=== PATIENT | male | born 1955 | race Two or more races ===

== ENCOUNTER 2021-09-26 13:33 | Inpatient (IN) | payer MEDICARE, OTHER ==
[~2021-09-26] VITALS: Ht 175.3 cm; Wt 63.5 kg
[2021-09-26] MEDS ORDERED: CLINDAMYCIN 900MG IV 50 ML IV ONE (14:00)
[2021-09-26 14:55] LABS: Basophils # (auto) 0 10 ^3/uL (0-0.2); Basophils % (auto) 0.3 % (0.0-2.0); Eosinophils # (auto) 0 10 ^3/uL (0-0.8); Hemoglobin 13.7 g/dL (13.5-17.5); Lymphocytes # (auto) 1.5 10 ^3/uL (0.4-5.4); Lymphocytes % (auto) 12.3 % (10.0-50.0); Mean Corpuscular Hemoglobin 28.3 pg (28.0-32.0); Mean Corpuscular Hgb Conc. 33.4 g/dL (32.0-36.0); Mean Corpuscular Volume 84.8 fL (80.0-100.0); Monocytes # (auto) 1.2 10 ^3/uL (0-1.3); Monocytes % (auto) 9.7 % (0.0-12.0); Neutrophils # (auto) 9.4 10 ^3/uL (1.6-8.6); Neutrophils % (auto) 77.7 % (37.0-80.0); Nucleated Red Blood Cells % 0.1 %; Red Blood Cells 4.84 10^6/uL (4.5-5.90); Red Cell Distribution Width 13.8 % (11.8-14.3); White Blood Cell 12.1 10^3/uL (4.4-10.8)
[2021-09-26 15:16] LABS: Albumin 3.5 g/dL (3.4-5.0); BUN/Creatinine Ratio 13.2; Calcium 9.5 mg/dL (8.5-10.1); Potassium 3.7 mmol/L (3.5-5.1)
[2021-09-26 15:18] LABS: Lactic Acid w/Reflex 2.6 mmol/L (0.4-2.0)
[2021-09-26 15:19] LABS: Bilirubin, Total 0.8 mg/dL (0.2-1.0); Total Protein 7.5 g/dL (6.4-8.2)
[2021-09-26 23:00] VITALS: BP 131/81
[2021-09-26] MEDS ORDERED: MORPHINE SULFATE INJECTION 2 MG/ML SYRG IV PRN (23:45)
[2021-09-26] MEDS ORDERED: ACETAMINOPHEN 325 MG TAB PO PRN (23:45)
[2021-09-26] MEDS ORDERED: DOCUSATE SOD 100 MG CAP PO PRN (23:45)
[2021-09-26] MEDS ORDERED: ONDANSETRON HCL 4 MG/2 ML VIAL IV PRN (23:45)
[2021-09-26] MEDS ORDERED: HYDROcodone-ACET 5/325MG TAB PO PRN (23:45)
[2021-09-26] MEDS ORDERED: MORPHINE SULFATE 4 MG/ML SYR/VIAL IV PRN (23:45)
[2021-09-26] MEDS ORDERED: NITROGLYCERIN 0.4 MG SL TAB SL PRN (23:45)
[2021-09-27] MEDS ORDERED: DEXTROSE (50%) 50ML SYRG IV PRN
[2021-09-27] MEDS ORDERED: METOPROLOL TARTRATE 25 MG TAB PO ONE (03:45)
[2021-09-27] MEDS ORDERED: hydrALAZINE HCL 20 MG/ML VL IV PRN (03:45)
[2021-09-27 05:00] VITALS: BP 131/81
[2021-09-27] MEDS: CLINDAMYCIN 600MG IV 50 ML IV SCH ×3 (05:00→22:07)
[2021-09-27] MEDS: SODIUM CHLOR 0.9% PF (SALINE LOCK) 10ML VIAL/SYR IV SCH ×3 (06:00→22:04)
[2021-09-27] MEDS: ACCU-CHEK COMFORT CURVE STRIP VI SCH ×4 (06:40→22:05)
[2021-09-27] MEDS: InsuLIN REG 1unit/0.01ml Soln (100units/ml) SC SCH ×4 (06:51→22:05)
[2021-09-27 09:00] VITALS: BP 112/71
[2021-09-27 09:01] LABS: Basophils # (auto) 0.1 10 ^3/uL (0-0.2); Basophils % (auto) 0.6 % (0.0-2.0); Eosinophils # (auto) 0 10 ^3/uL (0-0.8); Eosinophils % (auto) 0.1 % (0.0-7.0); Hematocrit 37.9 % (41.0-53.0); Hemoglobin 12.8 g/dL (13.5-17.5); Lymphocytes # (auto) 2.9 10 ^3/uL (0.4-5.4); Lymphocytes % (auto) 24.5 % (10.0-50.0); Mean Corpuscular Hemoglobin 28.1 pg (28.0-32.0); Mean Corpuscular Hgb Conc. 33.7 g/dL (32.0-36.0); Mean Corpuscular Volume 83.3 fL (80.0-100.0); Monocytes # (auto) 1.1 10 ^3/uL (0-1.3); Monocytes % (auto) 9.2 % (0.0-12.0); Neutrophils # (auto) 7.8 10 ^3/uL (1.6-8.6); Neutrophils % (auto) 65.6 % (37.0-80.0); Red Blood Cells 4.55 10^6/uL (4.5-5.90); Red Cell Distribution Width 13.5 % (11.8-14.3); White Blood Cell 11.9 10^3/uL (4.4-10.8)
[2021-09-27 09:17] LABS: Albumin 3.3 g/dL (3.4-5.0); Anion Gap 10 (5-15); Blood Urea Nitrogen 18 mg/dL (7-18); Calcium 9.3 mg/dL (8.5-10.1); Carbon Dioxide 26 mmol/L (21-32); Chloride 102 mmol/L (98-107); Glucose 96 mg/dL (74-106); Potassium 3.6 mmol/L (3.5-5.1); Sodium 138 mmol/L (136-145)
[2021-09-27 09:22] LABS: Alanine Aminotransferase 19 U/L (16-61); Alkaline Phosphatase 76 U/L (45-117); Aspartate Aminotransferase 10 U/L (15-37); BUN/Creatinine Ratio 18.6; Bilirubin, Total 0.6 mg/dL (0.2-1.0); Blood Alcohol < 3.0 mg/dL (0-5); GFR African American 99 mL/min; GFR Non-African American 82 mL/min
[2021-09-27] MEDS: ENOXAPARIN SOD 40 MG/0.4 ML SYRINGE SC SCH (09:43)
[2021-09-27] MEDS: ZINC SULFATE 220mg CAP or TAB PO SCH (09:43)
[2021-09-27] MEDS: MULTIPLE VITAMIN TAB PO SCH (09:44)
[2021-09-27] MEDS: ASCORBIC ACID 500 MG TAB PO SCH ×2 (09:44→22:04)
[2021-09-27] MEDS: METOPROLOL TARTRATE 25 MG TAB PO SCH ×2 (09:51→22:04)
[2021-09-27] MEDS ORDERED: FAMOTIDINE (10MG/ML) 2ML VL IV SCH (10:00)
[2021-09-27 13:19] VITALS: BP 152/75
[2021-09-27 17:00] VITALS: BP 122/68
[2021-09-27] MEDS: metFORMIN HYDROCHLORIDE 500 MG TAB PO SCH (18:03)
[2021-09-27 22:00] VITALS: BP 121/68
[2021-09-28 05:00] VITALS: BP 124/68
[2021-09-28] MEDS: ACCU-CHEK COMFORT CURVE STRIP VI SCH ×4 (06:52→22:28)
[2021-09-28] MEDS: SODIUM CHLOR 0.9% PF (SALINE LOCK) 10ML VIAL/SYR IV SCH ×3 (06:52→22:09)
[2021-09-28] MEDS: InsuLIN REG 1unit/0.01ml Soln (100units/ml) SC SCH ×4 (06:53→22:26)
[2021-09-28] MEDS: CLINDAMYCIN 600MG IV 50 ML IV SCH ×3 (06:55→22:09)
[2021-09-28] MEDS: metFORMIN HYDROCHLORIDE 500 MG TAB PO SCH ×2 (08:00→17:44)
[2021-09-28 09:00] VITALS: BP 100/61
[2021-09-28] MEDS: ZINC SULFATE 220mg CAP or TAB PO SCH (10:10)
[2021-09-28] MEDS: ENOXAPARIN SOD 40 MG/0.4 ML SYRINGE SC SCH (10:11)
[2021-09-28] MEDS: ASCORBIC ACID 500 MG TAB PO SCH ×2 (10:11→22:11)
[2021-09-28] MEDS: METOPROLOL TARTRATE 25 MG TAB PO SCH ×2 (10:11→22:10)
[2021-09-28] MEDS: MULTIPLE VITAMIN TAB PO SCH (10:11)
[2021-09-28 13:00] VITALS: BP 112/74
[2021-09-28] MEDS ORDERED: CLOPIDOGREL BISULFATE 75 MG TAB PO ONE (15:00)
[2021-09-28 17:00] VITALS: BP 122/68
[2021-09-28 19:43] LABS: INR 0.96 (0.9-1.15); Partial Thromboplastin Time 27.6 sec (23.6-33.0)
[2021-09-28 22:00] VITALS: BP 111/65
[2021-09-28] MEDS: ATORVASTATIN 20 MG TAB PO SCH (22:11)
[2021-09-29] VITALS (7 sets, daily range): BP systolic 113–148; BP diastolic 53–85
[2021-09-29] MEDS: CLINDAMYCIN 600MG IV 50 ML IV SCH ×3 (05:59→22:26)
[2021-09-29] MEDS: SODIUM CHLOR 0.9% PF (SALINE LOCK) 10ML VIAL/SYR IV SCH ×3 (05:59→22:26)
[2021-09-29 06:55] LABS: Basophils # (auto) 0.1 10 ^3/uL (0-0.2); Basophils % (auto) 0.6 % (0.0-2.0); Eosinophils # (auto) 0 10 ^3/uL (0-0.8); Eosinophils % (auto) 0.3 % (0.0-7.0); Hematocrit 33.3 % (41.0-53.0); Hemoglobin 11.7 g/dL (13.5-17.5); Lymphocytes # (auto) 2.4 10 ^3/uL (0.4-5.4); Lymphocytes % (auto) 25.8 % (10.0-50.0); Mean Corpuscular Hemoglobin 29.1 pg (28.0-32.0); Mean Corpuscular Hgb Conc. 35.3 g/dL (32.0-36.0); Mean Corpuscular Volume 82.4 fL (80.0-100.0); Monocytes # (auto) 0.9 10 ^3/uL (0-1.3); Neutrophils # (auto) 5.8 10 ^3/uL (1.6-8.6); Neutrophils % (auto) 63.3 % (37.0-80.0); Nucleated Red Blood Cells % 0.1 %; Red Blood Cells 4.04 10^6/uL (4.5-5.90); Red Cell Distribution Width 13.2 % (11.8-14.3); White Blood Cell 9.1 10^3/uL (4.4-10.8)
[2021-09-29] MEDS: InsuLIN REG 1unit/0.01ml Soln (100units/ml) SC SCH ×4 (07:02→22:56)
[2021-09-29] MEDS: ACCU-CHEK COMFORT CURVE STRIP VI SCH ×4 (07:04→22:00)
[2021-09-29 07:18] LABS: Calcium 8.4 mg/dL (8.5-10.1); Potassium 3.7 mmol/L (3.5-5.1)
[2021-09-29 07:21] LABS: BUN/Creatinine Ratio 18.6
[2021-09-29] MEDS: metFORMIN HYDROCHLORIDE 500 MG TAB PO SCH ×2 (08:00→15:52)
[2021-09-29] MEDS: METOPROLOL TARTRATE 25 MG TAB PO SCH ×2 (08:30→22:59)
[2021-09-29] MEDS: ZINC SULFATE 220mg CAP or TAB PO SCH (08:30)
[2021-09-29] MEDS: MULTIPLE VITAMIN TAB PO SCH (08:30)
[2021-09-29] MEDS: CLOPIDOGREL BISULFATE 75 MG TAB PO SCH (08:30)
[2021-09-29] MEDS: ENOXAPARIN SOD 40 MG/0.4 ML SYRINGE SC SCH (08:31)
[2021-09-29] MEDS: ASCORBIC ACID 500 MG TAB PO SCH ×2 (08:31→22:27)
[2021-09-29] MEDS ORDERED: IODIXANOL 320MG/ML 100ML BTL IV ONE ×3 (09:49→12:02)
[2021-09-29] MEDS ORDERED: LIDOCAINE 2%HCL (LOCAL ANESTH.) INJ 20ML MDV ONE (09:49)
[2021-09-29] MEDS ORDERED: HEPARIN SODIUM (PORCINE) 5000 UNITS/ML 1ML VIAL ONE (10:24)
[2021-09-29] MEDS ORDERED: VERAPAMIL 2.5MG/ML INJ 2ML VIAL IV ONE (10:24)
[2021-09-29] MEDS ORDERED: ANGIOMAX 250 MG VIAL IV ONE ×2 (10:24→12:08)
[2021-09-29] MEDS ORDERED: SODIUM CHL 0.9% 50 ML ONE ×2 (10:25→12:09)
[2021-09-29] MEDS ORDERED: fentaNYL CITRATE 100 MCG/2 ML VL ONE ×2 (10:25→11:48)
[2021-09-29] MEDS ORDERED: MIDAZOLAM HCL 2MG/2ML 2ml VIAL (1mg/ml) ONE ×3 (10:25→12:56)
[2021-09-29] MEDS ORDERED: CLOPIDOGREL 300 MG TAB ONE (13:54)
[2021-09-29] MEDS: ATORVASTATIN 20 MG TAB PO SCH (22:26)
[2021-09-29] MEDS: APIXABAN 2.5 MG TAB PO SCH (22:26)
[2021-09-30 05:00] VITALS: BP 137/65
[2021-09-30] MEDS: CLINDAMYCIN 600MG IV 50 ML IV SCH ×2 (05:42→14:00)
[2021-09-30 06:18] LABS: Calcium 8.6 mg/dL (8.5-10.1); Potassium 4.1 mmol/L (3.5-5.1)
[2021-09-30 06:20] LABS: BUN/Creatinine Ratio 13.2
[2021-09-30] MEDS: SODIUM CHLOR 0.9% PF (SALINE LOCK) 10ML VIAL/SYR IV SCH ×2 (06:21→14:00)
[2021-09-30] MEDS: InsuLIN REG 1unit/0.01ml Soln (100units/ml) SC SCH ×2 (06:26→11:30)
[2021-09-30] MEDS: ACCU-CHEK COMFORT CURVE STRIP VI SCH ×2 (06:26→11:30)
[2021-09-30] MEDS: metFORMIN HYDROCHLORIDE 500 MG TAB PO SCH (08:00)
[2021-09-30 09:00] VITALS: BP 143/67
[2021-09-30] MEDS: CLOPIDOGREL BISULFATE 75 MG TAB PO SCH (10:00)
[2021-09-30] MEDS: APIXABAN 2.5 MG TAB PO SCH (10:00)
[2021-09-30] MEDS: METOPROLOL TARTRATE 25 MG TAB PO SCH (10:00)
[2021-09-30] MEDS: MULTIPLE VITAMIN TAB PO SCH (10:00)
[2021-09-30] MEDS: ZINC SULFATE 220mg CAP or TAB PO SCH (10:00)
[2021-09-30] MEDS: ASCORBIC ACID 500 MG TAB PO SCH (10:00)
[2021-09-30 13:00] VITALS: BP 138/80
== END 2021-09-30 14:40 | disposition home or self-care (01) | DRG 270 ==
LOC: ER 13:33 → OVERFLOW 23:42 → CENTRAL 09-27 06:15
PROVIDERS: ADMIT Nurse Practitioner Family; ATTEND Family Medicine
PROC: 047D3DZ Dilation of Left Common Iliac Artery with Intraluminal Device, Percutaneous Approach (ICD-10-PCS; principal; 2021-09-29)
PROC: 047L3DZ Dilation of Left Femoral Artery with Intraluminal Device, Percutaneous Approach (ICD-10-PCS; 2021-09-29)
PROC: 047N3ZZ Dilation of Left Popliteal Artery, Percutaneous Approach (ICD-10-PCS; 2021-09-29)
PROC: 047U3ZZ Dilation of Left Peroneal Artery, Percutaneous Approach (ICD-10-PCS; 2021-09-29)
PROC: 047Q3ZZ Dilation of Left Anterior Tibial Artery, Percutaneous Approach (ICD-10-PCS; 2021-09-29)
PROC: 04CQ3ZZ Extirpation of Matter from Left Anterior Tibial Artery, Percutaneous Approach (ICD-10-PCS; 2021-09-29)
PROC: 04CN3ZZ Extirpation of Matter from Left Popliteal Artery, Percutaneous Approach (ICD-10-PCS; 2021-09-29)
PROC: 04CL3ZZ Extirpation of Matter from Left Femoral Artery, Percutaneous Approach (ICD-10-PCS; 2021-09-29)
PROC: 04CD3ZZ Extirpation of Matter from Left Common Iliac Artery, Percutaneous Approach (ICD-10-PCS; 2021-09-29)
PROC: B44GZZ3 Ultrasonography of Left Lower Extremity Arteries, Intravascular (ICD-10-PCS; 2021-09-29)
DX: E11.51 Type 2 diabetes mellitus with diabetic peripheral angiopathy without gangrene (principal); R65.11 Systemic inflammatory response syndrome (SIRS) of non-infectious origin with acute organ dysfunction; L03.116 Cellulitis of left lower limb; I70.92 Chronic total occlusion of artery of the extremities; L97.928 Non-pressure chronic ulcer of unspecified part of left lower leg with other specified severity; E11.65 Type 2 diabetes mellitus with hyperglycemia; I10 Essential (primary) hypertension; I70.202 Unspecified atherosclerosis of native arteries of extremities, left leg; Z20.822 Contact with and (suspected) exposure to COVID-19; Z79.84 Long term (current) use of oral hypoglycemic drugs; Z82.0 Family history of epilepsy and other diseases of the nervous system; Z83.3 Family history of diabetes mellitus; Z91.14 Patient's other noncompliance with medication regimen
CPT/HCPCS: 36415; 37221; 37227; 37229; 37252; 37253; 71045; 73630; 73700; 80048; 80053; 80061; 80320; 82962; 83036; 83605; 85025; 85610; 85730; 86141; 86850; 86900; 86901; 87040; 87426; 93005; 93925; 99152; 99153; G0378; J1815; J2250; J3490; Q9967

== ENCOUNTER 2021-10-12 10:27 | Inpatient (IN) | payer MEDICARE, MEDICAID ==
[~2021-10-12] VITALS: Ht 175.3 cm; Wt 77.0 kg
[2021-10-12] MEDS ORDERED: HEPARIN SODIUM (PORCINE) 5000 UNITS/ML 1ML VIAL IV ONE (11:45)
[2021-10-12] MEDS ORDERED: HEPARIN DRIP/D5W 100UNITS/ML 250 ML IV SCH (12:15)
[2021-10-12] MEDS ORDERED: NITROGLYCERIN 0.4 MG SL TAB SL PRN ×2 (14:15→15:15)
[2021-10-12] MEDS ORDERED: MORPHINE SULFATE INJECTION 2 MG/ML SYRG IV PRN ×2 (14:15→15:15)
[2021-10-12 14:33] LABS: Basophils # (auto) 0.1 10 ^3/uL (0-0.2); Basophils % (auto) 0.6 % (0.0-2.0); Eosinophils # (auto) 0 10 ^3/uL (0-0.8); Eosinophils % (auto) 0.3 % (0.0-7.0); Monocytes # (auto) 0.9 10 ^3/uL (0-1.3); Nucleated Red Blood Cells % 0.1 %; Red Cell Distribution Width 13.5 % (11.8-14.3); White Blood Cell 10.7 10^3/uL (4.4-10.8)
[2021-10-12 14:36] LABS: Hematocrit 33.2 % (41.0-53.0); Hemoglobin 11.7 g/dL (13.5-17.5); Lymphocytes % (auto) 18.6 % (10.0-50.0); Mean Corpuscular Hemoglobin 28.7 pg (28.0-32.0); Mean Corpuscular Hgb Conc. 35.1 g/dL (32.0-36.0); Mean Corpuscular Volume 81.6 fL (80.0-100.0); Monocytes % (auto) 8.2 % (0.0-12.0); Neutrophils # (auto) 7.7 10 ^3/uL (1.6-8.6); Neutrophils % (auto) 72.3 % (37.0-80.0); Red Blood Cells 4.07 10^6/uL (4.5-5.90)
[2021-10-12 14:55] LABS: INR 1.08 (0.9-1.15); Partial Thromboplastin Time 27.5 sec (23.6-33.0)
[2021-10-12 15:02] LABS: Albumin 2.8 g/dL (3.4-5.0); Calcium 9.2 mg/dL (8.5-10.1); Potassium 3.4 mmol/L (3.5-5.1)
[2021-10-12] MEDS ORDERED: hydrALAZINE HCL 20 MG/ML VL IV PRN (15:15)
[2021-10-12] MEDS ORDERED: PIPERACILLIN-TAZO 4.5GM 100 ML IV ONE (15:15)
[2021-10-12] MEDS ORDERED: ONDANSETRON HCL 4 MG/2 ML VIAL IV PRN (15:15)
[2021-10-12] MEDS ORDERED: DOCUSATE SOD 100 MG CAP PO PRN (15:15)
[2021-10-12] MEDS ORDERED: PENTOXIFYLLINE 400 MG ER TAB PO ONE (15:15)
[2021-10-12] MEDS ORDERED: NEOMYCIN-BACITRACIN-POLYM UNITDOSE PKG TOP OINT TOP ONE (15:15)
[2021-10-12] MEDS ORDERED: METOPROLOL SUCCINATE XL 50 MG TAB PO ONE (15:15)
[2021-10-12] MEDS ORDERED: DEXTROSE (50%) 50ML SYRG IV PRN (15:15)
[2021-10-12] MEDS ORDERED: VANCOMYCIN PER PHARMACY 0 MG IV SCH (15:15)
[2021-10-12 15:20] LABS: BUN/Creatinine Ratio 13.2; Bilirubin, Total 0.6 mg/dL (0.2-1.0)
[2021-10-12] MEDS ORDERED: VANCOMYCIN 1GM/250ML 250 ML IV ONE (15:30)
[2021-10-12] MEDS ORDERED: VANCOMYCIN 1GM/250ML 250 ML IV SCH (18:00)
[2021-10-12 20:12] LABS: INR 1.08 (0.9-1.15); Partial Thromboplastin Time 23.1 sec (23.6-33.0)
[2021-10-12] MEDS ORDERED: PIPERACILLIN-TAZO 4.5GM 100 ML IV SCH (22:00)
[2021-10-12 23:30] VITALS: BP 165/87
[2021-10-13] MEDS: SODIUM CHLORIDE 0.9% 1,000 ML IV SCH ×2 (00:08→07:55)
[2021-10-13] MEDS: ACCU-CHEK COMFORT CURVE STRIP VI SCH ×4 (00:11→18:02)
[2021-10-13] MEDS: APIXABAN 2.5 MG TAB PO SCH ×2 (00:11→09:00)
[2021-10-13] MEDS: CILOSTAZOL 100 MG TAB PO SCH ×3 (00:12→21:52)
[2021-10-13] MEDS: TEMAZEPAM 15 MG CAP PO PRN (00:12)
[2021-10-13] MEDS: PENTOXIFYLLINE 400 MG ER TAB PO SCH ×4 (00:12→21:52)
[2021-10-13] MEDS: ATORVASTATIN 20 MG TAB PO SCH ×2 (00:12→21:51)
[2021-10-13] MEDS: MORPHINE SULFATE INJECTION 2 MG/ML SYRG IV PRN (00:13)
[2021-10-13] MEDS: InsuLIN REG 1unit/0.01ml Soln (100units/ml) SC SCH ×4 (00:40→18:03)
[2021-10-13 01:36] VITALS: BP 155/80
[2021-10-13] MEDS ORDERED: ASPI1TAB20 PO (01:51)
[2021-10-13] MEDS ORDERED: APIX2.5T PO (01:51)
[2021-10-13] MEDS ORDERED: METF-370 PO (01:51)
[2021-10-13] MEDS ORDERED: CLOP75TA28 PO (01:51)
[2021-10-13] MEDS ORDERED: ATO40T PO (01:51)
[2021-10-13 05:00] VITALS: BP 133/69
[2021-10-13 05:37] LABS: Basophils # (auto) 0 10 ^3/uL (0-0.2); Basophils % (auto) 0.4 % (0.0-2.0); Eosinophils # (auto) 0 10 ^3/uL (0-0.8); Eosinophils % (auto) 0.2 % (0.0-7.0); Monocytes # (auto) 1.1 10 ^3/uL (0-1.3); Red Cell Distribution Width 13.8 % (11.8-14.3)
[2021-10-13 05:38] LABS: Hematocrit 31.2 % (41.0-53.0); Hemoglobin 10.7 g/dL (13.5-17.5); Lymphocytes # (auto) 1.7 10 ^3/uL (0.4-5.4); Lymphocytes % (auto) 12.6 % (10.0-50.0); Mean Corpuscular Hemoglobin 27.7 pg (28.0-32.0); Mean Corpuscular Hgb Conc. 34.3 g/dL (32.0-36.0); Mean Corpuscular Volume 80.7 fL (80.0-100.0); Monocytes % (auto) 8.5 % (0.0-12.0); Neutrophils # (auto) 10.3 10 ^3/uL (1.6-8.6); Neutrophils % (auto) 78.3 % (37.0-80.0); Nucleated Red Blood Cells % 0.1 %; Red Blood Cells 3.87 10^6/uL (4.5-5.90); White Blood Cell 13.2 10^3/uL (4.4-10.8)
[2021-10-13 05:53] LABS: % Iron Saturation 13.7 % (20-55); Albumin 2.6 g/dL (3.4-5.0); Calcium 8.7 mg/dL (8.5-10.1); INR 1.05 (0.9-1.15); Magnesium 2.8 mg/dL (1.6-2.6); Partial Thromboplastin Time 23.3 sec (23.6-33.0)
[2021-10-13 06:01] LABS: BUN/Creatinine Ratio 16.9; Bilirubin, Total 0.6 mg/dL (0.2-1.0); Folate (Folic Acid) 9.89 ng/mL (5.38-24); Phosphorus 2.2 mg/dL (2.5-4.90); Total Protein 7.4 g/dL (6.4-8.2); Uric Acid 4.2 mg/dL (3.5-7.2)
[2021-10-13 06:27] LABS: Potassium 2.9 mmol/L (3.5-5.1)
[2021-10-13 07:24] LABS: Urine Bacteria NONE SEEN /hpf (None Seen); Urine Blood Negative /uL (Negative); Urine Mucus FEW (None Seen); Urine Specific Gravity 1.019 (1.001-1.035); Urine WBC 4 /hpf (0 - 3)
[2021-10-13 07:29] LABS: Amphetamine Screen, Urine NEGATIVE (NEGATIVE); Barbiturate Scree,Urine NEGATIVE (NEGATIVE); Benzodiazephine Screen, Urine NEGATIVE (NEGATIVE); Cannabinoid Screen, Urine NEGATIVE (NEGATIVE); Cocaine Screen, Urine NEGATIVE (NEGATIVE); Opiate Scree,Urine NEGATIVE (NEGATIVE); Phencyclidine Screen, Urine NEGATIVE (NEGATIVE)
[2021-10-13] MEDS ORDERED: PIPERACILLIN-TAZO 4.5GM 100 ML IV SCH (08:00)
[2021-10-13] MEDS ORDERED: POTASSIUM CHL 20 Meq TABLET PO ONE (08:30)
[2021-10-13] MEDS ORDERED: POTASSIUM CHLORIDE 40 MEQ, LIDOCAINE 1% (LOCAL ANESTH.) 4 ML in SODIUM CHL 0.9% 250 ML IV ONE (08:30)
[2021-10-13] MEDS: ASPirin 81 mg TAB PO SCH (08:59)
[2021-10-13 09:00] VITALS: BP 99/59
[2021-10-13] MEDS: METOPROLOL SUCCINATE XL 50 MG TAB PO SCH (09:00)
[2021-10-13] MEDS: NEOMYCIN-BACITRACIN-POLYM UNITDOSE PKG TOP OINT TOP SCH (10:00)
[2021-10-13] MEDS: VANCOMYCIN 1GM/250ML 250 ML IV SCH (11:48)
[2021-10-13 12:16] VITALS: BP 98/52
[2021-10-13] MEDS: MEROPENEM 1GM IVPB 100 ML IV SCH ×2 (14:06→21:51)
[2021-10-13 17:01] VITALS: BP 108/56
[2021-10-13 22:00] VITALS: BP 119/67
[2021-10-14] MEDS: ACCU-CHEK COMFORT CURVE STRIP VI SCH ×5 (00:03→18:00)
[2021-10-14] MEDS: InsuLIN REG 1unit/0.01ml Soln (100units/ml) SC SCH ×5 (00:05→18:00)
[2021-10-14] MEDS: VANCOMYCIN 1GM/250ML 250 ML IV SCH ×3 (00:44→16:15)
[2021-10-14] MEDS: SODIUM CHLORIDE 0.9% 1,000 ML IV SCH ×2 (00:45→17:15)
[2021-10-14 05:00] VITALS: BP 125/72
[2021-10-14] MEDS: PENTOXIFYLLINE 400 MG ER TAB PO SCH ×4 (06:00→22:43)
[2021-10-14] MEDS: MEROPENEM 1GM IVPB 100 ML IV SCH ×3 (06:18→17:30)
[2021-10-14 06:57] LABS: Basophils # (auto) 0.1 10 ^3/uL (0-0.2); Basophils % (auto) 0.5 % (0.0-2.0); Eosinophils # (auto) 0 10 ^3/uL (0-0.8); Eosinophils % (auto) 0.1 % (0.0-7.0); Hematocrit 28.9 % (41.0-53.0); Hemoglobin 9.8 g/dL (13.5-17.5); Lymphocytes # (auto) 1.7 10 ^3/uL (0.4-5.4); Mean Corpuscular Hemoglobin 27.7 pg (28.0-32.0); Mean Corpuscular Hgb Conc. 33.9 g/dL (32.0-36.0); Mean Corpuscular Volume 81.7 fL (80.0-100.0); Monocytes # (auto) 0.9 10 ^3/uL (0-1.3); Neutrophils # (auto) 8.2 10 ^3/uL (1.6-8.6); Neutrophils % (auto) 75.4 % (37.0-80.0); Red Blood Cells 3.54 10^6/uL (4.5-5.90); Red Cell Distribution Width 13.6 % (11.8-14.3); White Blood Cell 10.8 10^3/uL (4.4-10.8)
[2021-10-14 07:07] LABS: Potassium 4.2 mmol/L (3.5-5.1)
[2021-10-14 07:14] LABS: BUN/Creatinine Ratio 11.1
[2021-10-14 08:40] VITALS: BP 102/62
[2021-10-14] MEDS: METOPROLOL SUCCINATE XL 50 MG TAB PO SCH (10:00)
[2021-10-14] MEDS: ASPirin 81 mg TAB PO SCH (10:00)
[2021-10-14] MEDS: CILOSTAZOL 100 MG TAB PO SCH ×2 (10:00→22:43)
[2021-10-14] MEDS: NEOMYCIN-BACITRACIN-POLYM UNITDOSE PKG TOP OINT TOP SCH (10:00)
[2021-10-14] MEDS ORDERED: IOHEXOL 350 MG/ML 100ML IJ ONE (10:42)
[2021-10-14] MEDS ORDERED: LIDOCAINE 2%HCL (LOCAL ANESTH.) INJ 20ML MDV ONE (10:42)
[2021-10-14] MEDS ORDERED: IODIXANOL 320MG/ML 100ML BTL IV ONE (12:40)
[2021-10-14] MEDS ORDERED: CATHFLO ACTIVASE (ALTEPLASE) 2 MG VIAL ONE (13:10)
[2021-10-14] MEDS ORDERED: HEPARIN DRIP/D5W 100UNITS/ML 250 ML IV ONE (13:13)
[2021-10-14] MEDS ORDERED: HEPARIN SODIUM (PORCINE) 5000 UNITS/ML 1ML VIAL ONE ×2 (13:14→22:54)
[2021-10-14] MEDS: HEPARIN DRIP/D5W 100UNITS/ML 250 ML IV SCH ×2 (13:30→22:56)
[2021-10-14] MEDS ORDERED: ALTEPLASE (RECOMBINANT) 100 MG in STERILE WATER 100 ML IV ONE (13:45)
[2021-10-14] MEDS ORDERED: ALTEPLASE (RECOMBINANT) 100 MG VIAL IV ONE (14:00)
[2021-10-14 20:00] VITALS: BP 114/63
[2021-10-14] MEDS: ATORVASTATIN 20 MG TAB PO SCH (21:30)
[2021-10-14 22:00] VITALS: BP 120/69
[2021-10-14 22:25] LABS: INR 1.16 (0.9-1.15); Partial Thromboplastin Time 33.1 sec (23.6-33.0)
[2021-10-14 23:00] VITALS: BP 120/69
[2021-10-15] VITALS (18 sets, daily range): BP systolic 95–123; BP diastolic 56–75
[2021-10-15] MEDS: VANCOMYCIN 1GM/250ML 250 ML IV SCH ×2 (00:06→11:57)
[2021-10-15] MEDS: ACCU-CHEK COMFORT CURVE STRIP VI SCH ×4 (00:06→18:14)
[2021-10-15] MEDS: InsuLIN REG 1unit/0.01ml Soln (100units/ml) SC SCH ×4 (00:15→18:15)
[2021-10-15 01:50] LABS: INR 1.22 (0.9-1.15)
[2021-10-15 04:37] LABS: Basophils # (auto) 0.1 10 ^3/uL (0-0.2); Basophils % (auto) 0.5 % (0.0-2.0); Eosinophils # (auto) 0 10 ^3/uL (0-0.8); Eosinophils % (auto) 0.1 % (0.0-7.0); Hematocrit 27.7 % (41.0-53.0); Hemoglobin 9.4 g/dL (13.5-17.5); Lymphocytes # (auto) 1.7 10 ^3/uL (0.4-5.4); Lymphocytes % (auto) 13.6 % (10.0-50.0); Mean Corpuscular Hemoglobin 27.6 pg (28.0-32.0); Mean Corpuscular Volume 81.2 fL (80.0-100.0); Monocytes # (auto) 1.1 10 ^3/uL (0-1.3); Monocytes % (auto) 8.3 % (0.0-12.0); Neutrophils # (auto) 9.8 10 ^3/uL (1.6-8.6); Neutrophils % (auto) 77.5 % (37.0-80.0); Red Blood Cells 3.41 10^6/uL (4.5-5.90); Red Cell Distribution Width 13.8 % (11.8-14.3); White Blood Cell 12.7 10^3/uL (4.4-10.8)
[2021-10-15 04:57] LABS: BUN/Creatinine Ratio 12.7; Calcium 8.6 mg/dL (8.5-10.1); Potassium 3.7 mmol/L (3.5-5.1)
[2021-10-15] MEDS: PENTOXIFYLLINE 400 MG ER TAB PO SCH ×2 (06:07→14:00)
[2021-10-15] MEDS: MEROPENEM 1GM IVPB 100 ML IV SCH ×2 (06:07→14:20)
[2021-10-15 07:45] LABS: INR 1.2 (0.9-1.15); Partial Thromboplastin Time 39.9 sec (23.6-33.0)
[2021-10-15] MEDS: SODIUM CHLORIDE 0.9% 1,000 ML IV SCH (09:50)
[2021-10-15] MEDS: NEOMYCIN-BACITRACIN-POLYM UNITDOSE PKG TOP OINT TOP SCH (10:00)
[2021-10-15] MEDS: ASPirin 81 mg TAB PO SCH (10:10)
[2021-10-15] MEDS: CILOSTAZOL 100 MG TAB PO SCH (10:10)
[2021-10-15] MEDS: METOPROLOL SUCCINATE XL 50 MG TAB PO SCH (10:11)
[2021-10-15] MEDS ORDERED: HEPARIN DRIP/D5W 100UNITS/ML 250 ML IV ONE (11:52)
[2021-10-15] MEDS: HEPARIN DRIP/D5W 100UNITS/ML 250 ML IV SCH ×2 (11:59→21:53)
[2021-10-15 13:45] LABS: INR 1.21 (0.9-1.15); Partial Thromboplastin Time 39.4 sec (23.6-33.0)
[2021-10-15] MEDS ORDERED: MIDAZOLAM HCL 2MG/2ML 2ml VIAL (1mg/ml) ONE (15:51)
[2021-10-15] MEDS ORDERED: fentaNYL CITRATE 100 MCG/2 ML VL ONE (15:51)
[2021-10-15] MEDS ORDERED: ANGIOMAX 250 MG VIAL IV ONE (15:53)
[2021-10-15] MEDS ORDERED: LIDOCAINE 2%HCL (LOCAL ANESTH.) INJ 20ML MDV ONE (15:53)
[2021-10-15] MEDS ORDERED: SODIUM CHL 0.9% 0 ML ONE (15:53)
[2021-10-15] MEDS ORDERED: IOHEXOL 350 MG/ML 100ML IJ ONE (15:53)
[2021-10-15] MEDS ORDERED: EPTIFIBATIDE INJ (2MG/ML) 10ML VIAL IV ONE (16:35)
[2021-10-15] MEDS ORDERED: EPTIFIBATIDE DRIP(0.75MG/ML) 100 ML IV ONE (16:42)
[2021-10-15 19:55] LABS: INR 1.21 (0.9-1.15); Partial Thromboplastin Time 36.6 sec (23.6-33.0)
[2021-10-16] VITALS (8 sets, daily range): BP systolic 96–118; BP diastolic 41–71
[2021-10-16] MEDS: ATORVASTATIN 20 MG TAB PO SCH (00:02)
[2021-10-16] MEDS: MEROPENEM 1GM IVPB 100 ML IV SCH ×4 (00:02→22:00)
[2021-10-16] MEDS: VANCOMYCIN 1GM/250ML 250 ML IV SCH ×2 (00:03→12:00)
[2021-10-16] MEDS: CILOSTAZOL 100 MG TAB PO SCH ×2 (00:03→09:06)
[2021-10-16] MEDS: PENTOXIFYLLINE 400 MG ER TAB PO SCH ×4 (00:03→22:00)
[2021-10-16] MEDS ORDERED: METOPROLOL SUCCINATE XL 50 MG TAB PO ONE (00:30)
[2021-10-16] MEDS: InsuLIN REG 1unit/0.01ml Soln (100units/ml) SC SCH ×4 (00:35→18:17)
[2021-10-16] MEDS: ACCU-CHEK COMFORT CURVE STRIP VI SCH ×4 (00:36→18:17)
[2021-10-16] MEDS: SODIUM CHLORIDE 0.9% 1,000 ML IV SCH ×2 (00:36→18:38)
[2021-10-16] MEDS: EPTIFIBATIDE DRIP(0.75MG/ML) 100 ML IV SCH ×3 (02:47→17:03)
[2021-10-16 05:20] LABS: Basophils # (auto) 0.1 10 ^3/uL (0-0.2); Basophils % (auto) 0.4 % (0.0-2.0); Eosinophils # (auto) 0 10 ^3/uL (0-0.8); Lymphocytes # (auto) 2.4 10 ^3/uL (0.4-5.4); Lymphocytes % (auto) 17.3 % (10.0-50.0); Red Cell Distribution Width 13.8 % (11.8-14.3)
[2021-10-16 05:22] LABS: Eosinophils % (auto) 0.2 % (0.0-7.0); Hematocrit 20.3 % (41.0-53.0); Hemoglobin 7.2 g/dL (13.5-17.5); Mean Corpuscular Hemoglobin 28.6 pg (28.0-32.0); Mean Corpuscular Hgb Conc. 35.3 g/dL (32.0-36.0); Monocytes % (auto) 7.6 % (0.0-12.0); Neutrophils # (auto) 10.2 10 ^3/uL (1.6-8.6); Neutrophils % (auto) 74.5 % (37.0-80.0); Red Blood Cells 2.51 10^6/uL (4.5-5.90); White Blood Cell 13.7 10^3/uL (4.4-10.8)
[2021-10-16 05:49] LABS: Potassium 3.6 mmol/L (3.5-5.1)
[2021-10-16 05:51] LABS: BUN/Creatinine Ratio 15.5
[2021-10-16 06:08] LABS: INR 1.16 (0.9-1.15); Partial Thromboplastin Time 50.7 sec (23.6-33.0)
[2021-10-16] MEDS: ASPirin 81 mg TAB PO SCH (09:06)
[2021-10-16] MEDS: METOPROLOL SUCCINATE XL 50 MG TAB PO SCH (09:06)
[2021-10-16] MEDS: NEOMYCIN-BACITRACIN-POLYM UNITDOSE PKG TOP OINT TOP SCH (09:07)
[2021-10-16 11:40] LABS: INR 1.12 (0.9-1.15); Partial Thromboplastin Time 57.4 sec (23.6-33.0)
[2021-10-17] VITALS (7 sets, daily range): BP systolic 105–131; BP diastolic 49–60
[2021-10-17] MEDS ORDERED: CLOPIDOGREL 300 MG TAB PO ONE (00:30)
[2021-10-17] MEDS: ATORVASTATIN 20 MG TAB PO SCH ×2 (01:02→22:27)
[2021-10-17] MEDS: CILOSTAZOL 100 MG TAB PO SCH ×3 (01:02→22:28)
[2021-10-17] MEDS: VANCOMYCIN 1GM/250ML 250 ML IV SCH ×2 (01:02→11:46)
[2021-10-17] MEDS: ACCU-CHEK COMFORT CURVE STRIP VI SCH ×4 (01:04→18:01)
[2021-10-17] MEDS: InsuLIN REG 1unit/0.01ml Soln (100units/ml) SC SCH ×4 (01:05→18:28)
[2021-10-17] MEDS: TEMAZEPAM 15 MG CAP PO PRN (01:06)
[2021-10-17] MEDS ORDERED: EPTIFIBATIDE DRIP(0.75MG/ML) 100 ML IV ONE (03:11)
[2021-10-17 05:12] LABS: Eosinophils # (auto) 0.2 10 ^3/uL (0-0.8); Monocytes # (auto) 0.8 10 ^3/uL (0-1.3); Red Cell Distribution Width 13.8 % (11.8-14.3)
[2021-10-17 05:14] LABS: Basophils # (auto) 0 10 ^3/uL (0-0.2); Basophils % (auto) 0.5 % (0.0-2.0); Eosinophils % (auto) 2.7 % (0.0-7.0); Hematocrit 19.6 % (41.0-53.0); Lymphocytes # (auto) 1.8 10 ^3/uL (0.4-5.4); Lymphocytes % (auto) 19.3 % (10.0-50.0); Mean Corpuscular Hgb Conc. 35.4 g/dL (32.0-36.0); Mean Corpuscular Volume 81.8 fL (80.0-100.0); Monocytes % (auto) 8.7 % (0.0-12.0); Neutrophils # (auto) 6.3 10 ^3/uL (1.6-8.6); Neutrophils % (auto) 68.8 % (37.0-80.0); White Blood Cell 9.1 10^3/uL (4.4-10.8)
[2021-10-17 05:21] LABS: BUN/Creatinine Ratio 16.4; Calcium 7.3 mg/dL (8.5-10.1); Potassium 3.4 mmol/L (3.5-5.1)
[2021-10-17] MEDS: MEROPENEM 1GM IVPB 100 ML IV SCH ×3 (05:55→22:27)
[2021-10-17] MEDS: PENTOXIFYLLINE 400 MG ER TAB PO SCH ×3 (06:00→22:28)
[2021-10-17] MEDS: CLOPIDOGREL BISULFATE 75 MG TAB PO SCH (10:39)
[2021-10-17] MEDS: ASPirin 81 mg TAB PO SCH (10:39)
[2021-10-17] MEDS: NEOMYCIN-BACITRACIN-POLYM UNITDOSE PKG TOP OINT TOP SCH (10:40)
[2021-10-17] MEDS: METOPROLOL SUCCINATE XL 50 MG TAB PO SCH (10:40)
[2021-10-17] MEDS: PANTOPRAZOLE 40 MG TAB PO SCH ×2 (10:40→22:28)
[2021-10-17] MEDS: MORPHINE SULFATE INJECTION 2 MG/ML SYRG IV PRN ×3 (10:41→22:29)
[2021-10-17] MEDS: SODIUM CHLORIDE 0.9% 1,000 ML IV SCH (10:42)
[2021-10-17 14:46] LABS: Hemoglobin 7.5 g/dL (13.5-17.5)
[2021-10-17] MEDS ORDERED: POTASSIUM EFFERVESENT TAB 25 MEQ PO ONE (19:00)
[2021-10-17 22:51] LABS: Hemoglobin 7.8 g/dL (13.5-17.5)
[2021-10-17 22:54] LABS: Hematocrit 22.8 % (41.0-53.0)
[2021-10-18] MEDS: InsuLIN REG 1unit/0.01ml Soln (100units/ml) SC SCH ×4 (00:12→17:52)
[2021-10-18] MEDS: VANCOMYCIN 1GM/250ML 250 ML IV SCH ×2 (00:13→12:01)
[2021-10-18] MEDS: ACCU-CHEK COMFORT CURVE STRIP VI SCH ×4 (00:13→17:47)
[2021-10-18 02:15] VITALS: BP 134/63
[2021-10-18] MEDS: MORPHINE SULFATE INJECTION 2 MG/ML SYRG IV PRN ×4 (02:25→21:43)
[2021-10-18] MEDS ORDERED: EPTIFIBATIDE DRIP(0.75MG/ML) 100 ML IV SCH (02:30)
[2021-10-18 02:32] LABS: Hematocrit 22.8 % (41.0-53.0); Hemoglobin 7.8 g/dL (13.5-17.5)
[2021-10-18 05:00] VITALS: BP 120/58
[2021-10-18] MEDS: SODIUM CHLORIDE 0.9% 1,000 ML IV SCH ×2 (05:07→21:40)
[2021-10-18] MEDS: MEROPENEM 1GM IVPB 100 ML IV SCH ×3 (05:47→21:41)
[2021-10-18] MEDS: PENTOXIFYLLINE 400 MG ER TAB PO SCH ×3 (05:48→21:41)
[2021-10-18 07:22] LABS: Basophils # (auto) 0.1 10 ^3/uL (0-0.2); Eosinophils # (auto) 0.3 10 ^3/uL (0-0.8); Eosinophils % (auto) 2.9 % (0.0-7.0); Hematocrit 26.1 % (41.0-53.0); Hemoglobin 8.7 g/dL (13.5-17.5); Lymphocytes % (auto) 19.2 % (10.0-50.0); Mean Corpuscular Hemoglobin 27.5 pg (28.0-32.0); Mean Corpuscular Hgb Conc. 33.3 g/dL (32.0-36.0); Mean Corpuscular Volume 82.7 fL (80.0-100.0); Monocytes # (auto) 0.9 10 ^3/uL (0-1.3); Monocytes % (auto) 8.4 % (0.0-12.0); Neutrophils # (auto) 7.2 10 ^3/uL (1.6-8.6); Neutrophils % (auto) 68.5 % (37.0-80.0); Red Blood Cells 3.16 10^6/uL (4.5-5.90); Red Cell Distribution Width 14.3 % (11.8-14.3); White Blood Cell 10.5 10^3/uL (4.4-10.8)
[2021-10-18 07:45] LABS: Albumin 2.1 g/dL (3.4-5.0); Potassium 3.8 mmol/L (3.5-5.1)
[2021-10-18 07:50] LABS: BUN/Creatinine Ratio 11.8; Bilirubin, Total 1.1 mg/dL (0.2-1.0); Calcium 8.3 mg/dL (8.5-10.1); Total Protein 5.7 g/dL (6.4-8.2)
[2021-10-18 08:00] VITALS: BP 131/68
[2021-10-18] MEDS: CLOPIDOGREL BISULFATE 75 MG TAB PO SCH (08:22)
[2021-10-18] MEDS: ASPirin 81 mg TAB PO SCH (08:22)
[2021-10-18] MEDS: CILOSTAZOL 100 MG TAB PO SCH ×2 (08:23→21:41)
[2021-10-18] MEDS: PANTOPRAZOLE 40 MG TAB PO SCH ×2 (08:23→21:41)
[2021-10-18] MEDS: METOPROLOL SUCCINATE XL 50 MG TAB PO SCH ×2 (08:23→10:00)
[2021-10-18] MEDS: HYDROcodone-ACET 5/325MG TAB PO PRN (08:32)
[2021-10-18] MEDS: NEOMYCIN-BACITRACIN-POLYM UNITDOSE PKG TOP OINT TOP SCH (10:00)
[2021-10-18 12:00] VITALS: BP 137/71
[2021-10-18 17:35] VITALS: BP 129/57
[2021-10-18] MEDS: ATORVASTATIN 20 MG TAB PO SCH (21:41)
[2021-10-19] MEDS: ACCU-CHEK COMFORT CURVE STRIP VI SCH ×4 (00:02→18:05)
[2021-10-19] MEDS: VANCOMYCIN 1GM/250ML 250 ML IV SCH ×2 (00:02→12:22)
[2021-10-19] MEDS: InsuLIN REG 1unit/0.01ml Soln (100units/ml) SC SCH ×4 (00:04→18:05)
[2021-10-19] MEDS: PENTOXIFYLLINE 400 MG ER TAB PO SCH ×3 (06:24→21:25)
[2021-10-19] MEDS: MEROPENEM 1GM IVPB 100 ML IV SCH ×3 (06:25→21:24)
[2021-10-19 09:39] VITALS: BP 135/61
[2021-10-19] MEDS: NEOMYCIN-BACITRACIN-POLYM UNITDOSE PKG TOP OINT TOP SCH (10:00)
[2021-10-19] MEDS: CILOSTAZOL 100 MG TAB PO SCH ×2 (10:10→21:25)
[2021-10-19] MEDS: MORPHINE SULFATE INJECTION 2 MG/ML SYRG IV PRN (10:10)
[2021-10-19] MEDS: ASPirin 81 mg TAB PO SCH (10:10)
[2021-10-19] MEDS: METOPROLOL SUCCINATE XL 50 MG TAB PO SCH (10:11)
[2021-10-19] MEDS: PANTOPRAZOLE 40 MG TAB PO SCH ×2 (10:14→21:25)
[2021-10-19] MEDS: SODIUM CHLORIDE 0.9% 1,000 ML IV SCH (14:18)
[2021-10-19 14:49] VITALS: BP 113/67
[2021-10-19 16:35] VITALS: BP 126/60
[2021-10-19] MEDS: ATORVASTATIN 20 MG TAB PO SCH (21:24)
[2021-10-19 22:00] VITALS: BP 131/65
[2021-10-20] VITALS (12 sets, daily range): BP systolic 99–150; BP diastolic 56–75
[2021-10-20] MEDS: VANCOMYCIN 1GM/250ML 250 ML IV SCH ×2 (00:22→13:20)
[2021-10-20] MEDS: ACCU-CHEK COMFORT CURVE STRIP VI SCH ×4 (00:22→17:24)
[2021-10-20] MEDS: InsuLIN REG 1unit/0.01ml Soln (100units/ml) SC SCH ×4 (00:34→18:34)
[2021-10-20] MEDS: PENTOXIFYLLINE 400 MG ER TAB PO SCH ×3 (06:00→22:00)
[2021-10-20] MEDS: MEROPENEM 1GM IVPB 100 ML IV SCH ×3 (06:00→22:00)
[2021-10-20] MEDS: SODIUM CHLORIDE 0.9% 1,000 ML IV SCH ×2 (06:35→23:22)
[2021-10-20] MEDS ORDERED: ceFAZolin 1GM/50ML 100 ML IV ONE (07:21)
[2021-10-20] MEDS ORDERED: BUPIVACAINE W/ EPINEPH 0.25% INJ 50ML MDV ONE (07:22)
[2021-10-20] MEDS ORDERED: MORPHINE SULF PF 2 MG/2 ML SYRG ONE ×2 (07:24→07:25)
[2021-10-20] MEDS ORDERED: KETOROLAC TROMETH 30 MG/ML 1ML VIAL ONE (07:25)
[2021-10-20] MEDS ORDERED: LIDOCAINE 2% (LOCAL ANESTH.) PF 5ml SDV ONE (07:27)
[2021-10-20] MEDS ORDERED: ONDANSETRON HCL 4 MG/2 ML VIAL ONE (07:27)
[2021-10-20] MEDS ORDERED: PROPOFOL 10 MG/ML 20 ML IV ONE ×3 (07:28→08:00)
[2021-10-20] MEDS ORDERED: MIDAZOLAM HCL 2MG/2ML 2ml VIAL (1mg/ml) ONE (07:29)
[2021-10-20] MEDS ORDERED: fentaNYL CITRATE 5 ML ONE (07:29)
[2021-10-20] MEDS ORDERED: ROCURONIUM 10MG/ML 10ML VIAL IV ONE (07:29)
[2021-10-20] MEDS ORDERED: HYDROmorphone HCL 2 MG/ML VL ONE (08:00)
[2021-10-20] MEDS ORDERED: ONDANSETRON HCL 4 MG/2 ML VIAL IV PRN (09:15)
[2021-10-20] MEDS ORDERED: HYDROmorphone HCL 2 MG/ML VL IV PRN ×2 (09:15)
[2021-10-20] MEDS ORDERED: GLYCOPYRROLATE 0.2 MG/ML 1ML VIAL ONE (09:35)
[2021-10-20] MEDS ORDERED: NEOSTIGMINE 1 MG/ML INJ (10mg/10ML VIAL) ONE (09:35)
[2021-10-20] MEDS: NEOMYCIN-BACITRACIN-POLYM UNITDOSE PKG TOP OINT TOP SCH (10:00)
[2021-10-20] MEDS: ASPirin 81 mg TAB PO SCH (12:07)
[2021-10-20] MEDS: PANTOPRAZOLE 40 MG TAB PO SCH ×2 (12:07→22:00)
[2021-10-20] MEDS: CILOSTAZOL 100 MG TAB PO SCH ×2 (12:07→22:00)
[2021-10-20] MEDS: METOPROLOL SUCCINATE XL 50 MG TAB PO SCH (12:08)
[2021-10-20] MEDS: GABAPENTIN 100 MG CAP PO SCH ×2 (16:31→22:00)
[2021-10-20] MEDS: ATORVASTATIN 20 MG TAB PO SCH (22:00)
[2021-10-21] MEDS: ACCU-CHEK COMFORT CURVE STRIP VI SCH ×5 (00:13→23:46)
[2021-10-21] MEDS: InsuLIN REG 1unit/0.01ml Soln (100units/ml) SC SCH ×5 (00:16→23:40)
[2021-10-21] MEDS: VANCOMYCIN 1GM/250ML 250 ML IV SCH ×2 (03:00→17:00)
[2021-10-21 05:00] VITALS: BP 134/64
[2021-10-21] MEDS ORDERED: ACETAMINOPHEN 325 MG TAB PO PRN (05:15)
[2021-10-21] MEDS: PENTOXIFYLLINE 400 MG ER TAB PO SCH ×3 (06:00→22:09)
[2021-10-21] MEDS: GABAPENTIN 100 MG CAP PO SCH ×3 (06:00→21:48)
[2021-10-21] MEDS: MEROPENEM 1GM IVPB 100 ML IV SCH ×3 (06:00→21:48)
[2021-10-21 09:00] VITALS: BP 128/51
[2021-10-21 09:03] LABS: Basophils # (auto) 0.1 10 ^3/uL (0-0.2); Basophils % (auto) 0.6 % (0.0-2.0); Eosinophils # (auto) 0 10 ^3/uL (0-0.8); Eosinophils % (auto) 0.2 % (0.0-7.0); Hemoglobin 9.4 g/dL (13.5-17.5); Lymphocytes # (auto) 1.4 10 ^3/uL (0.4-5.4); Lymphocytes % (auto) 11.8 % (10.0-50.0); Mean Corpuscular Hemoglobin 28.6 pg (28.0-32.0); Mean Corpuscular Hgb Conc. 33.8 g/dL (32.0-36.0); Mean Corpuscular Volume 84.7 fL (80.0-100.0); Monocytes # (auto) 0.7 10 ^3/uL (0-1.3); Monocytes % (auto) 5.9 % (0.0-12.0); Neutrophils # (auto) 9.9 10 ^3/uL (1.6-8.6); Neutrophils % (auto) 81.5 % (37.0-80.0); Red Cell Distribution Width 14.8 % (11.8-14.3); White Blood Cell 12.1 10^3/uL (4.4-10.8)
[2021-10-21] MEDS: CILOSTAZOL 100 MG TAB PO SCH ×2 (09:25→21:48)
[2021-10-21] MEDS: ASPirin 81 mg TAB PO SCH (09:25)
[2021-10-21] MEDS: PANTOPRAZOLE 40 MG TAB PO SCH ×2 (09:25→21:49)
[2021-10-21] MEDS: METOPROLOL SUCCINATE XL 50 MG TAB PO SCH ×2 (09:25→10:00)
[2021-10-21] MEDS: NEOMYCIN-BACITRACIN-POLYM UNITDOSE PKG TOP OINT TOP SCH (09:26)
[2021-10-21 09:34] LABS: Potassium 3.5 mmol/L (3.5-5.1)
[2021-10-21 09:39] LABS: BUN/Creatinine Ratio 14.5; Calcium 7.3 mg/dL (8.5-10.1)
[2021-10-21 11:32] LABS: Urine Bacteria FEW /hpf (None Seen); Urine Blood Negative /uL (Negative); Urine Mucus FEW (None Seen); Urine Specific Gravity 1.017 (1.001-1.035); Urine WBC 1 /hpf (0 - 3)
[2021-10-21] MEDS: SODIUM CHLORIDE 0.9% 1,000 ML IV SCH ×2 (11:58→20:00)
[2021-10-21 13:00] VITALS: BP 143/75
[2021-10-21] MEDS ORDERED: SODIUM CHLORIDE 0.9% 1,000 ML IV ONE (15:00)
[2021-10-21 17:00] VITALS: BP 113/49
[2021-10-21] MEDS ORDERED: SODIUM CHLORIDE 0.9% 2,300 ML IV ONE (18:30)
[2021-10-21 20:43] VITALS: BP 106/51
[2021-10-21] MEDS: ATORVASTATIN 20 MG TAB PO SCH (21:48)
[2021-10-22] MEDS: MORPHINE SULFATE INJECTION 2 MG/ML SYRG IV PRN (00:30)
[2021-10-22 05:00] VITALS: BP 120/41
[2021-10-22 05:57] LABS: Basophils # (auto) 0.1 10 ^3/uL (0-0.2); Eosinophils # (auto) 0 10 ^3/uL (0-0.8); Monocytes # (auto) 0.7 10 ^3/uL (0-1.3)
[2021-10-22 06:00] LABS: Basophils % (auto) 0.5 % (0.0-2.0); Eosinophils % (auto) 0.3 % (0.0-7.0); Hematocrit 23.4 % (41.0-53.0); Hemoglobin 8.1 g/dL (13.5-17.5); Lymphocytes # (auto) 1.6 10 ^3/uL (0.4-5.4); Lymphocytes % (auto) 11.6 % (10.0-50.0); Mean Corpuscular Hemoglobin 28.9 pg (28.0-32.0); Mean Corpuscular Hgb Conc. 34.5 g/dL (32.0-36.0); Mean Corpuscular Volume 83.9 fL (80.0-100.0); Monocytes % (auto) 4.9 % (0.0-12.0); Neutrophils # (auto) 11.5 10 ^3/uL (1.6-8.6); Neutrophils % (auto) 82.7 % (37.0-80.0); Red Blood Cells 2.79 10^6/uL (4.5-5.90); Red Cell Distribution Width 14.7 % (11.8-14.3); White Blood Cell 13.9 10^3/uL (4.4-10.8)
[2021-10-22] MEDS: ACCU-CHEK COMFORT CURVE STRIP VI SCH ×4 (06:12→23:37)
[2021-10-22 06:13] LABS: Albumin 1.4 g/dL (3.4-5.0); BUN/Creatinine Ratio 15.4; Calcium 7.1 mg/dL (8.5-10.1)
[2021-10-22 06:16] LABS: Bilirubin, Total 1.2 mg/dL (0.2-1.0); Total Protein 4.6 g/dL (6.4-8.2)
[2021-10-22 06:24] LABS: Potassium 2.9 mmol/L (3.5-5.1)
[2021-10-22] MEDS: InsuLIN REG 1unit/0.01ml Soln (100units/ml) SC SCH ×4 (06:26→23:36)
[2021-10-22] MEDS: MEROPENEM 1GM IVPB 100 ML IV SCH ×3 (06:27→21:30)
[2021-10-22] MEDS: PENTOXIFYLLINE 400 MG ER TAB PO SCH ×3 (06:28→21:28)
[2021-10-22] MEDS: GABAPENTIN 100 MG CAP PO SCH ×3 (06:28→21:40)
[2021-10-22] MEDS: SODIUM CHLORIDE 0.9% 1,000 ML IV SCH ×2 (06:28→16:00)
[2021-10-22] MEDS ORDERED: LOPERAMIDE HCL 2 MG CAP PO PRN (06:45)
[2021-10-22] MEDS: VANCOMYCIN 1GM/250ML 250 ML IV SCH ×2 (07:03→21:27)
[2021-10-22] MEDS: POTASSIUM CHL 20MEQ/50ML 50 ML IV SCH ×3 (08:45→20:21)
[2021-10-22 09:00] VITALS: BP 118/62
[2021-10-22] MEDS: ASPirin 81 mg TAB PO SCH (09:34)
[2021-10-22] MEDS: CILOSTAZOL 100 MG TAB PO SCH ×2 (09:34→21:28)
[2021-10-22] MEDS: CLOPIDOGREL BISULFATE 75 MG TAB PO SCH (09:34)
[2021-10-22] MEDS: PANTOPRAZOLE 40 MG TAB PO SCH ×2 (09:34→21:41)
[2021-10-22] MEDS: METOPROLOL SUCCINATE XL 50 MG TAB PO SCH (09:35)
[2021-10-22] MEDS: NEOMYCIN-BACITRACIN-POLYM UNITDOSE PKG TOP OINT TOP SCH (09:53)
[2021-10-22 13:00] VITALS: BP 107/60
[2021-10-22] MEDS: HYDROcodone-ACET 5/325MG TAB PO PRN ×2 (13:05→17:58)
[2021-10-22 17:00] VITALS: BP 120/58
[2021-10-22] MEDS ORDERED: POTASSIUM CHL 20MEQ/50ML 50 ML IV ONE (20:00)
[2021-10-22 20:23] VITALS: BP 113/60
[2021-10-22] MEDS: ATORVASTATIN 20 MG TAB PO SCH (21:28)
[2021-10-22] MEDS: VANCOMYCIN HCL 125MG/5ML ORAL SOL PO SCH (21:30)
[2021-10-23] MEDS: SODIUM CHLORIDE 0.9% 1,000 ML IV SCH ×2 (02:30→12:05)
[2021-10-23 04:21] VITALS: BP 116/60
[2021-10-23 05:05] LABS: Basophils # (auto) 0.1 10 ^3/uL (0-0.2); Basophils % (auto) 0.6 % (0.0-2.0); Eosinophils # (auto) 0.3 10 ^3/uL (0-0.8); Eosinophils % (auto) 2.3 % (0.0-7.0); Hematocrit 23.9 % (41.0-53.0); Hemoglobin 8.1 g/dL (13.5-17.5); Lymphocytes # (auto) 1.6 10 ^3/uL (0.4-5.4); Lymphocytes % (auto) 13.7 % (10.0-50.0); Mean Corpuscular Hemoglobin 28.4 pg (28.0-32.0); Mean Corpuscular Hgb Conc. 33.9 g/dL (32.0-36.0); Mean Corpuscular Volume 83.8 fL (80.0-100.0); Monocytes # (auto) 0.8 10 ^3/uL (0-1.3); Monocytes % (auto) 6.6 % (0.0-12.0); Neutrophils # (auto) 8.8 10 ^3/uL (1.6-8.6); Neutrophils % (auto) 76.8 % (37.0-80.0); Red Blood Cells 2.85 10^6/uL (4.5-5.90); Red Cell Distribution Width 14.5 % (11.8-14.3); White Blood Cell 11.5 10^3/uL (4.4-10.8)
[2021-10-23] MEDS: MEROPENEM 1GM IVPB 100 ML IV SCH ×3 (05:11→21:12)
[2021-10-23 05:19] LABS: Magnesium 1.8 mg/dL (1.6-2.6); Potassium 3.4 mmol/L (3.5-5.1)
[2021-10-23] MEDS: PENTOXIFYLLINE 400 MG ER TAB PO SCH ×3 (05:29→21:13)
[2021-10-23] MEDS: GABAPENTIN 100 MG CAP PO SCH ×3 (05:30→21:13)
[2021-10-23] MEDS: VANCOMYCIN HCL 125MG/5ML ORAL SOL PO SCH ×4 (05:30→21:12)
[2021-10-23] MEDS: ACCU-CHEK COMFORT CURVE STRIP VI SCH ×4 (05:30→23:33)
[2021-10-23] MEDS: InsuLIN REG 1unit/0.01ml Soln (100units/ml) SC SCH ×4 (05:33→23:35)
[2021-10-23 09:00] VITALS: BP 130/64
[2021-10-23] MEDS: ASPirin 81 mg TAB PO SCH (10:43)
[2021-10-23] MEDS: CLOPIDOGREL BISULFATE 75 MG TAB PO SCH (10:44)
[2021-10-23] MEDS: CILOSTAZOL 100 MG TAB PO SCH ×2 (10:44→21:13)
[2021-10-23] MEDS: METOPROLOL SUCCINATE XL 50 MG TAB PO SCH (10:44)
[2021-10-23] MEDS: PANTOPRAZOLE 40 MG TAB PO SCH ×2 (10:44→21:13)
[2021-10-23] MEDS ORDERED: FLORASTOR (S. BOULARDII) 250 MG CAP PO ONE (11:06)
[2021-10-23] MEDS ORDERED: POTASSIUM CHL 20 Meq TABLET PO ONE (11:15)
[2021-10-23] MEDS ORDERED: MAGNESIUM SULFATE 1GM/100ML 100 ML IV ONE (11:15)
[2021-10-23] MEDS: NEOMYCIN-BACITRACIN-POLYM UNITDOSE PKG TOP OINT TOP SCH (12:04)
[2021-10-23] MEDS: VANCOMYCIN 1GM/250ML 250 ML IV SCH (12:54)
[2021-10-23 17:00] VITALS: BP 111/58
[2021-10-23] MEDS: HYDROcodone-ACET 5/325MG TAB PO PRN (20:36)
[2021-10-23] MEDS: ATORVASTATIN 20 MG TAB PO SCH (21:12)
[2021-10-23 22:00] VITALS: BP 125/64
[2021-10-24] MEDS: SODIUM CHLORIDE 0.9% 1,000 ML IV SCH ×2 (01:33→15:51)
[2021-10-24] MEDS: VANCOMYCIN 1GM/250ML 250 ML IV SCH ×2 (02:31→17:00)
[2021-10-24 05:00] VITALS: BP 131/70
[2021-10-24 05:12] LABS: Basophils # (auto) 0.1 10 ^3/uL (0-0.2); Basophils % (auto) 1.3 % (0.0-2.0); Eosinophils # (auto) 0.3 10 ^3/uL (0-0.8); Eosinophils % (auto) 3.6 % (0.0-7.0); Hematocrit 23.6 % (41.0-53.0); Lymphocytes # (auto) 1.7 10 ^3/uL (0.4-5.4); Lymphocytes % (auto) 18.4 % (10.0-50.0); Mean Corpuscular Hemoglobin 28.4 pg (28.0-32.0); Mean Corpuscular Hgb Conc. 33.9 g/dL (32.0-36.0); Mean Corpuscular Volume 83.8 fL (80.0-100.0); Monocytes # (auto) 0.7 10 ^3/uL (0-1.3); Monocytes % (auto) 7.1 % (0.0-12.0); Neutrophils # (auto) 6.6 10 ^3/uL (1.6-8.6); Neutrophils % (auto) 69.6 % (37.0-80.0); Nucleated Red Blood Cells % 0.1 %; Red Blood Cells 2.81 10^6/uL (4.5-5.90); Red Cell Distribution Width 15.1 % (11.8-14.3); White Blood Cell 9.5 10^3/uL (4.4-10.8)
[2021-10-24] MEDS: ACCU-CHEK COMFORT CURVE STRIP VI SCH ×3 (05:18→17:35)
[2021-10-24] MEDS: InsuLIN REG 1unit/0.01ml Soln (100units/ml) SC SCH ×3 (05:24→17:36)
[2021-10-24] MEDS: MEROPENEM 1GM IVPB 100 ML IV SCH ×3 (05:27→21:48)
[2021-10-24] MEDS: VANCOMYCIN HCL 125MG/5ML ORAL SOL PO SCH ×4 (05:28→21:49)
[2021-10-24] MEDS: GABAPENTIN 100 MG CAP PO SCH ×3 (05:28→21:50)
[2021-10-24] MEDS: PENTOXIFYLLINE 400 MG ER TAB PO SCH ×3 (05:28→21:49)
[2021-10-24 05:35] LABS: Potassium 3.3 mmol/L (3.5-5.1)
[2021-10-24 05:40] LABS: BUN/Creatinine Ratio 16.1
[2021-10-24 09:00] VITALS: BP 127/65
[2021-10-24] MEDS: NEOMYCIN-BACITRACIN-POLYM UNITDOSE PKG TOP OINT TOP SCH (10:17)
[2021-10-24] MEDS: ASPirin 81 mg TAB PO SCH (10:18)
[2021-10-24] MEDS: PANTOPRAZOLE 40 MG TAB PO SCH ×2 (10:18→21:50)
[2021-10-24] MEDS: CLOPIDOGREL BISULFATE 75 MG TAB PO SCH (10:18)
[2021-10-24] MEDS: CILOSTAZOL 100 MG TAB PO SCH ×2 (10:18→21:49)
[2021-10-24] MEDS: FLORASTOR (S. BOULARDII) 250 MG CAP PO SCH (10:19)
[2021-10-24] MEDS: METOPROLOL SUCCINATE XL 50 MG TAB PO SCH (10:19)
[2021-10-24] MEDS ORDERED: POTASSIUM EFFERVESENT TAB 25 MEQ PO ONE (12:00)
[2021-10-24 13:00] VITALS: BP 116/62
[2021-10-24] MEDS: ATORVASTATIN 20 MG TAB PO SCH (21:49)
[2021-10-24 22:00] VITALS: BP 105/53
[2021-10-25] MEDS: ACCU-CHEK COMFORT CURVE STRIP VI SCH ×4 (00:02→17:56)
[2021-10-25] MEDS: InsuLIN REG 1unit/0.01ml Soln (100units/ml) SC SCH ×4 (00:04→18:02)
[2021-10-25 05:00] VITALS: BP 136/69
[2021-10-25 05:56] LABS: Basophils # (auto) 0.1 10 ^3/uL (0-0.2); Lymphocytes # (auto) 1.8 10 ^3/uL (0.4-5.4); Monocytes # (auto) 0.7 10 ^3/uL (0-1.3); Monocytes % (auto) 8.5 % (0.0-12.0); Nucleated Red Blood Cells % 0.1 %
[2021-10-25 05:59] LABS: Basophils % (auto) 1.2 % (0.0-2.0); Eosinophils # (auto) 0.3 10 ^3/uL (0-0.8); Eosinophils % (auto) 4.1 % (0.0-7.0); Hematocrit 23.5 % (41.0-53.0); Lymphocytes % (auto) 22.5 % (10.0-50.0); Mean Corpuscular Hemoglobin 28.4 pg (28.0-32.0); Mean Corpuscular Hgb Conc. 34.1 g/dL (32.0-36.0); Mean Corpuscular Volume 83.3 fL (80.0-100.0); Neutrophils # (auto) 5.2 10 ^3/uL (1.6-8.6); Neutrophils % (auto) 63.7 % (37.0-80.0); Red Blood Cells 2.82 10^6/uL (4.5-5.90); Red Cell Distribution Width 15.1 % (11.8-14.3); White Blood Cell 8.1 10^3/uL (4.4-10.8)
[2021-10-25 06:00] LABS: Magnesium 2.7 mg/dL (1.6-2.6); Potassium 3.6 mmol/L (3.5-5.1)
[2021-10-25] MEDS: MEROPENEM 1GM IVPB 100 ML IV SCH (06:08)
[2021-10-25] MEDS: VANCOMYCIN HCL 125MG/5ML ORAL SOL PO SCH ×4 (06:09→22:49)
[2021-10-25] MEDS: GABAPENTIN 100 MG CAP PO SCH ×3 (06:09→22:49)
[2021-10-25] MEDS: PENTOXIFYLLINE 400 MG ER TAB PO SCH ×3 (06:09→22:50)
[2021-10-25 09:00] VITALS: BP 124/71
[2021-10-25] MEDS: SODIUM CHLORIDE 0.9% 1,000 ML IV SCH ×2 (09:13→10:13)
[2021-10-25] MEDS: FLORASTOR (S. BOULARDII) 250 MG CAP PO SCH (09:48)
[2021-10-25] MEDS: CILOSTAZOL 100 MG TAB PO SCH ×2 (09:48→22:50)
[2021-10-25] MEDS: CLOPIDOGREL BISULFATE 75 MG TAB PO SCH (09:48)
[2021-10-25] MEDS: ASPirin 81 mg TAB PO SCH (09:48)
[2021-10-25] MEDS: PANTOPRAZOLE 40 MG TAB PO SCH (09:48)
[2021-10-25 13:00] VITALS: BP 120/63
[2021-10-25 16:00] VITALS: BP 139/66
[2021-10-25] MEDS: NEOMYCIN-BACITRACIN-POLYM UNITDOSE PKG TOP OINT TOP SCH (18:36)
[2021-10-25] MEDS: ATORVASTATIN 20 MG TAB PO SCH (22:50)
[2021-10-26] MEDS: InsuLIN REG 1unit/0.01ml Soln (100units/ml) SC SCH ×3 (01:08→12:11)
[2021-10-26] MEDS: ACCU-CHEK COMFORT CURVE STRIP VI SCH ×3 (01:09→14:48)
[2021-10-26 06:22] LABS: Basophils # (auto) 0.1 10 ^3/uL (0-0.2); Basophils % (auto) 0.9 % (0.0-2.0); Eosinophils # (auto) 0.3 10 ^3/uL (0-0.8); Eosinophils % (auto) 4.1 % (0.0-7.0); Hematocrit 26.9 % (41.0-53.0); Hemoglobin 9.2 g/dL (13.5-17.5); Lymphocytes # (auto) 1.7 10 ^3/uL (0.4-5.4); Lymphocytes % (auto) 20.7 % (10.0-50.0); Mean Corpuscular Hemoglobin 28.7 pg (28.0-32.0); Mean Corpuscular Hgb Conc. 34.1 g/dL (32.0-36.0); Mean Corpuscular Volume 84.3 fL (80.0-100.0); Monocytes # (auto) 0.7 10 ^3/uL (0-1.3); Monocytes % (auto) 8.2 % (0.0-12.0); Neutrophils # (auto) 5.6 10 ^3/uL (1.6-8.6); Neutrophils % (auto) 66.1 % (37.0-80.0); Nucleated Red Blood Cells % 0.2 %; Red Blood Cells 3.19 10^6/uL (4.5-5.90); Red Cell Distribution Width 15.9 % (11.8-14.3); White Blood Cell 8.4 10^3/uL (4.4-10.8)
[2021-10-26] MEDS: GABAPENTIN 100 MG CAP PO SCH ×2 (06:39→14:48)
[2021-10-26] MEDS: VANCOMYCIN HCL 125MG/5ML ORAL SOL PO SCH ×2 (06:39→12:11)
[2021-10-26] MEDS: PENTOXIFYLLINE 400 MG ER TAB PO SCH ×2 (06:40→14:48)
[2021-10-26 06:53] LABS: Potassium 3.6 mmol/L (3.5-5.1)
[2021-10-26 07:02] LABS: BUN/Creatinine Ratio 13.8
[2021-10-26 09:00] VITALS: BP 125/68
[2021-10-26] MEDS: NEOMYCIN-BACITRACIN-POLYM UNITDOSE PKG TOP OINT TOP SCH (10:00)
[2021-10-26] MEDS: FLORASTOR (S. BOULARDII) 250 MG CAP PO SCH (10:19)
[2021-10-26] MEDS: CLOPIDOGREL BISULFATE 75 MG TAB PO SCH (10:20)
[2021-10-26] MEDS: PANTOPRAZOLE 40 MG TAB PO SCH (10:20)
[2021-10-26] MEDS: CILOSTAZOL 100 MG TAB PO SCH (10:20)
[2021-10-26] MEDS: ASPirin 81 mg TAB PO SCH (10:20)
[2021-10-26] MEDS: SODIUM CHLORIDE 0.9% 1,000 ML IV SCH (10:45)
[2021-10-26 13:00] VITALS: BP 144/74
[2021-10-26 13:23] VITALS: BP 127/65
== END 2021-10-26 16:50 | DRG 854 ==
LOC: ER 10:27 → TELE 14:02 → TELE-CENTR 23:25 → CATH ICU 10-14 18:05 → TELE-CENTR 10-15 20:00 → CENTRAL 10-20 06:42 → TELE-CENTR 10-25 22:21
PROVIDERS: ADMIT Hospitalist; ATTEND Internal Medicine
PROC: 047L3ZZ Dilation of Left Femoral Artery, Percutaneous Approach (ICD-10-PCS; 2021-10-15)
PROC: 047N3ZZ Dilation of Left Popliteal Artery, Percutaneous Approach (ICD-10-PCS; 2021-10-15)
PROC: 047D3ZZ Dilation of Left Common Iliac Artery, Percutaneous Approach (ICD-10-PCS; 2021-10-15)
PROC: B41G1ZZ Fluoroscopy of Left Lower Extremity Arteries using Low Osmolar Contrast (ICD-10-PCS; 2021-10-15)
PROC: B41F1ZZ Fluoroscopy of Right Lower Extremity Arteries using Low Osmolar Contrast (ICD-10-PCS; 2021-10-15)
PROC: 3E05317 Introduction of Other Thrombolytic into Peripheral Artery, Percutaneous Approach (ICD-10-PCS; 2021-10-15)
PROC: 30233N1 Transfusion of Nonautologous Red Blood Cells into Peripheral Vein, Percutaneous Approach (ICD-10-PCS; 2021-10-20)
PROC: 0Y6G0ZZ Detachment at Left Knee Region, Open Approach (ICD-10-PCS; principal; 2021-10-20 07:29)
DX: A41.9 Sepsis, unspecified organism (principal); E11.52 Type 2 diabetes mellitus with diabetic peripheral angiopathy with gangrene; L03.116 Cellulitis of left lower limb; K55.1 Chronic vascular disorders of intestine; R64 Cachexia; L97.528 Non-pressure chronic ulcer of other part of left foot with other specified severity; A04.72 Enterocolitis due to Clostridium difficile, not specified as recurrent; E44.0 Moderate protein-calorie malnutrition; L97.529 Non-pressure chronic ulcer of other part of left foot with unspecified severity; D64.9 Anemia, unspecified; I25.10 Atherosclerotic heart disease of native coronary artery without angina pectoris; D75.839 Thrombocytosis, unspecified; Z20.822 Contact with and (suspected) exposure to COVID-19; E78.5 Hyperlipidemia, unspecified; E87.6 Hypokalemia; F17.200 Nicotine dependence, unspecified, uncomplicated; I10 Essential (primary) hypertension; Z82.0 Family history of epilepsy and other diseases of the nervous system; Z83.3 Family history of diabetes mellitus; Z89.512 Acquired absence of left leg below knee; Z68.24 Body mass index [BMI] 24.0-24.9, adult
CPT/HCPCS: 36415; 37224; 37228; 71045; 71046; 73560; 73590; 73630; 75710; 80048; 80053; 80202; 80307; 81001; 82306; 82565; 82607; 82746; 82962; 83540; 83550; 83735; 83880; 84100; 84132; 84443; 84484; 84550; 85014; 85018; 85025; 85379; 85610; 85730; 86850; 86900; 86901; 86920; 87040; 87077; 87086; 87186; 87426; 87493; 93005; 93306; 97110; 97116; 97163; 97530; 99152; 99153; C1876; G0378; J0690; J1815; J1885; J2001; J2185; J2250; J2405; J2543; J2704; Q9967

== ENCOUNTER → 2021-10-12 | Outpatient (CLI) | payer MEDICARE ==
[~2021-10-12] MED LIST: ANGIOMAX 250 MG VIAL IV ONE; APIX2.5T PO; ASPI1TAB20 PO; ATO40T PO; CLOP75TA28 PO; METF-370 PO; MIDAZOLAM HCL 2MG/2ML 2ml VIAL (1mg/ml) ONE; SODIUM CHL 0.9% 50 ML ONE; fentaNYL CITRATE 100 MCG/2 ML VL ONE
== END | disposition home or self-care (01) ==
LOC: Rad HDHVI 09:07
PROVIDERS: ATTEND Internal Medicine Cardiovascular Disease
DX: Z01.811 Encounter for preprocedural respiratory examination (principal); I70.0 Atherosclerosis of aorta
CPT/HCPCS: 71046